=== PATIENT | female | born 1990 | race Caucasian/White ===

== ENCOUNTER 2023-09-29 05:52 | Day surgery (SDC) | payer BC, SELFPAY ==
[2023-09-29] VITALS (12 sets, daily range): BP systolic 104–149; BP diastolic 63–96; BMI 32.4
[2023-09-29] MEDS: TYLENOL 1000 MG PO (06:23)
[2023-09-29] MEDS: NEURONTIN 300 MG PO (06:24)
[2023-09-29] MEDS: HEPARIN 5000 UNITS SC (06:24)
[2023-09-29] MEDS: CELEBREX 200 MG PO (06:24)
[2023-09-29] MEDS: NORMOSOL-R 1000 IV (06:50)
--- NOTE | 2023-09-29 07:18 | PTCARENOTE ---
HR is [id number]. Dr. Young aware. Patient states that she gets nervous even at doctors appointments. Will monitor patient.
--- NOTE | 2023-09-29 09:56 | OR.RPT ---
Operative Report
Operative Report
Preoperative diagnosis: Right ovarian mass suspected endometrioma, abnormal uterine bleeding, lower abdominal pain
Postoperative diagnosis, right ovary with endometrioma, pelvic adhesions
Surgeon Charlie Van
Assist GOMEZ Singh, Willie Rubin, TREVER
Procedures
robotic assisted laparoscopic exploration of abdomen and
Laparoscopic right ovarian cystectomy,
pelvic adhesiolysis,
excision of multiple peritoneal implants.
Dilation and curettage
Tap block
Anesthesia General endotracheal intubation
Procedure in detail
This patient was taken to the operating room, placed in supine position, general anesthesia was administered and she was intubated without any difficulty. Her arms were wrapped and protected and laid along her sides, lower extremities were placed
in lithotomy position using yellowfin stirrups. She was prepped and draped on the abdomen perineum and upper thighs. Timeout procedure was completed she received prophylactic antibiotics with cefazolin. Delong catheter was inserted under sterile
conditions. Anterior lip of the cervix was grasped with single-tooth tenaculum and the uterine canal was dilated, sounded to 9 cm. Sharp curettage of the endometrial cavity was obtained and tissue was submitted as EMC to pathology. Mandarin Teacher
uterine manipulator with 2.5 cm REZA ring was placed for uterine manipulation. Attention was turned abdominally, Veress needle was placed in the umbilicus and insufflation of the abdomen up to 15 mmHg was obtained. 8 mm robotic port was placed 5 cm
above umbilicus into the peritoneal cavity exploration of the abdomen reveals stomach liver spleen omentum right and left diaphragms to be within normal limits. Under direct observation 8 mm robotic ports were placed left upper quadrant and left
abdomen as well as right upper quadrant. A 12 mm air seal port was placed in the right lower quadrant.
Tap block was performed by 0.25% ropivacaine and 10 mL Decadron in right upper quadrant abdominal wall and left upper quadrant abdominal wall as well as right and left mid abdomen
Next robotic system was docked and patient was placed in 30 degree Trendelenburg position. Washings were collected in the pelvis and submitted for cytology. The left tube and ovary appeared to be grossly within normal limits there were hemosiderin
stains involving right and left round ligaments as well as right pelvic peritoneum all of these were resected and submitted to pathology. We performed an incision on the capsule of the right ovary. The right ovary was enlarged to approximately 10
cm, the ovarian cyst was carefully peeled off the capsule of the ovary anteriorly posteriorly and medially but this eventually ruptured and large amount of dark brown chocolate colored fluid exited the ovarian cyst. The remainder of the cystectomy
was completed and the cyst was placed in an endoscopic bag. We establish hemostasis on the bed of the cystectomy. There were adhesions in the posterior cul-de-sac including complete obliteration of uterosacral ligaments and these were examined and
additional foci of endometriosis was discovered just lateral to the right uterosacral ligament which was drained and excised. A [id number] suture of 3-0 Vicryl was necessary to control bleeding from the medial aspect of the cystectomy bed. We
also examined the appendix and noted that there was some localized adhesions, there was endometriotic stains on the mesentery of the appendix as well as serosa of the appendix but I did not feel appendectomy in the setting is necessary. We
proceeded to irrigate the pelvis copiously and placed Surgiflo forearm hemostasis on the posterior aspect of the uterus as well as the bed of the ovarian cystectomy. The fallopian tubes appear to be within normal limits. Good hemostasis was
present. We used a Hank Quinonez system to place 1 suture of 0 Vicryl to close the fascia in the right lower quadrant incision. All ports were removed pneumoperitoneum was released. Skin incisions were closed with 4-0 Monocryl in a subcuticular
fashion.
Counts of laps instruments and needle was correct x 2. I was present and scrubbed for entire procedure as dictated above
Estimated blood loss 50 cc
Complications none
Disposition return back to PACU stable awake and extubated
== END 2023-09-29 11:48 | disposition home or self-care (01) ==
LOC: SDS 05:52
PROVIDERS: ATTENDING PHYSICIAN Obstetrics & Gynecology Gynecologic Oncology
DX: N80.121 Deep endometriosis of right ovary (principal); N80.03 Adenomyosis of the uterus; N73.6 Female pelvic peritoneal adhesions (postinfective); N93.8 Other specified abnormal uterine and vaginal bleeding; R10.30 Lower abdominal pain, unspecified
CPT/HCPCS: 58662; 88305; 86850; 86900; 86901; 88112